=== PATIENT | female | born 1990 | race Caucasian/White ===

== ENCOUNTER 2017-06-10 16:14 | Emergency (ER) | payer BC ==
[2017-06-10 16:28] VITALS: BP 113/71
--- NOTE | 2017-06-10 16:28 | UC ---
Upper Extremity HPI - HPI Summary HPI Summary: 27 YEAR OLD FEMALE PRESENTS WITH COMPLAINS OF LEFT ELBOW PAIN AND 4/5 TH FINGER TINGLING. - History of Current Complaint Stated Complaint: LEFT ARM TINGLING Time Seen by Provider: 06/10/17 16:27 - Allergies/Home Medications Allergies/Adverse Reactions: Allergies Allergy/AdvReac Type Severity Reaction Status Date / Time No Known Allergies Allergy Verified 06/10/17 16:23 Home Medications: Home Medications Acetaminophen TAB* [Tylenol TAB*] 650 mg PO Q4H PRN 06/10/17 [History Confirmed 06/10/17] Vitamin TAB* 1 tab PO DAILY 06/10/17 [History Confirmed 06/10/17] Review of Systems Constitutional: Negative Skin: Negative Eyes: Negative ENT: Negative Respiratory: Negative Cardiovascular: Negative Gastrointestinal: Negative Genitourinary: Negative Motor: Negative Neurovascular: Negative Musculoskeletal: Other: - LEFT ELBOW PAIN Neurological: Negative Psychological: Negative All Other Systems Reviewed And Are Negative: Yes Physical Exam Triage Information Reviewed: Yes Eye Exam: Normal ENT Exam: Normal Dental Exam: Normal Neck exam: Normal Neck: Positive: 1 Cardiovascular Exam: Normal Abdominal Exam: Normal Musculoskeletal: Positive: Strength Limited @, Other: - LEFT CUBITAL TUNNEL PAIN Neurological: Positive: Other: - LEFT 4/5TH FINGER TINGLING Psychological Exam: Normal Skin Exam: Normal Upper Extremity Course/Dx - Differential Dx/Diagnosis Provider Diagnoses: LEFT CUBITAL TUNNEL SYNDROME Discharge - Discharge Plan Condition: Stable Disposition: HOME Patient Education Materials: Cubital Tunnel Syndrome (ED), Arm Pain (ED) Referrals: No Primary Care Phys,NOPCP [Medical Doctor] -
== END 2017-06-10 16:53 | disposition home or self-care (01) ==
LOC: UCCORT 16:14
DX: G56.22 Lesion of ulnar nerve, left upper limb (principal)
CPT/HCPCS: 99211; G0463